=== PATIENT | male | born 1990 | race Caucasian/White ===

== ENCOUNTER 2020-10-22 00:16 | Emergency (ER) | payer OTHER ==
[~2020-10-22] VITALS: Ht 185.4 cm; Wt 93.5 kg
[2020-10-22 00:22] VITALS: BP 127/83
== END 2020-10-22 01:33 | disposition home or self-care (01) ==
LOC: ED 00:46
DX: S16.1XXA Strain of muscle, fascia and tendon at neck level, initial encounter (principal); M54.6 Pain in thoracic spine; R20.2 Paresthesia of skin; Z87.891 Personal history of nicotine dependence; X58.XXXA Exposure to other specified factors, initial encounter; Y93.89 Activity, other specified; Y92.89 Other specified places as the place of occurrence of the external cause; Y99.8 Other external cause status
CPT/HCPCS: 93005; 99283